=== PATIENT | female | born 1965 | race Caucasian/White ===

== ENCOUNTER 2018-12-28 09:48 | Emergency (ER) | payer OTHER ==
[2018-12-28 09:55] VITALS: BMI 48.9
--- NOTE | 2018-12-28 11:05 | PDOC ---
History of Present Illness - General Chief Complaint: Pain Stated Complaint: ABD PAIN/VOMITING History Source: Patient Exam Limitations: No Limitations - History of Present Illness Initial Comments: 12/28/18 11:05 53 yo F with h/o multiple abd surgeries, and previous incisional hernia ruq, s/ p mesh years ago, co abd pain near hernia site.started last pm. does have nausea. no vomiting. pain is constant radiating to back. was severe yesterday. does intermittently have recurrent bulging at hernia site, mesh has failed she was told. has not seen a surgeon in many years. last bm was today, normal. is passing gas. pain is intermittent, no f/c no urinar complaints. previous abd surgeries: cholecystectomy, resultant hernia repair with mesh c section, gastric bypass, abdominoplasty, recently had endometrial biopsy, hysteroscopy D&C no current surgeon following Past History - Past Medical History Allergies/Adverse Reactions: Allergies Allergy/AdvReac Type Severity Reaction Status Date / Time Iodinated Contrast Media Allergy Verified 12/28/18 09:55 [Iodinated Contrast Media - IV Dye] levofloxacin [From Levaquin] Allergy Verified 12/28/18 09:55 shellfish derived Allergy Verified 12/28/18 09:55 Home Medications: Ambulatory Orders Enalapril Maleate [Vasotec -] 10 mg PO DAILY 01/18/13 Hydrochlorothiazide [Hctz -] 25 mg PO DAILY 01/18/13 Naproxen [Naprosyn -] 500 mg PO BID PRN #15 tablet 01/18/13 Levothyroxine [Synthroid -] 50 mcg PO DAILY 12/28/18 Lisinopril [Prinivil -] 40 mg PO DAILY 12/28/18 Medroxyprogesterone Acetate 10 mg PO DAILY 12/28/18 Zolpidem Tartrate [Ambien] 5 mg PO DAILY 12/28/18 COPD: No HTN: Yes Other medical history: fibromyalgia - Surgical History Abdominal Surgery: Yes (HERNIA) Cholecystectomy: Yes Gastric Stapling: Yes (gastric bypass 20 yrs ago) - Suicide/Smoking/Psychosocial Hx Smoking Status: No Smoking History: Never smoked Number of Cigarettes Smoked Daily: 0 Review of Systems - Review of Systems Constitutional: No: Chills, Diaphoresis, Fever HEENTM: No: Eye Pain, Blurred Vision, Mouth Swelling Respiratory: No: Cough Cardiac (ROS): No: See HPI, Chest Pain ABD/GI: Yes: Nausea, Vomiting, Other (abd pain) : No: Burning, Dysuria, Discharge Musculoskeletal: Yes: Back Pain All Other Systems: Reviewed and Negative *Physical Exam - Vital Signs Last Vital Signs Temp Pulse Resp BP Pulse Ox 97.9 F 72 18 115/56 L 98 12/28/18 09:51 12/28/18 09:51 12/28/18 09:51 12/28/18 09:51 12/28/18 09:51 - Physical Exam Comments: 12/28/18 11:38 awake alert lungs clear bilat heart rrr no mrg abd soft obses, right upper quad scar, palp hernia, no palp bowel or herniation. but ttp, luq ttp. ext wwp no edema.nuero alert oriented moves all ext. ED Treatment Course - LABORATORY CBC & Chemistry Diagram: 12/28/18 11:30 12/28/18 11:30 Medical Decision Making - Medical Decision Making 12/28/18 11:39 53 yo F with mult abd surgeries priro sbo and hernia her ewith abd pain n/v differntial includes sbo, recurrent hernia, uti pyelo msk back strain, other infection. plan ct a/p pt allergic to iv contrast. plan oral contrast zofran ivf labs . 12/28/18 16:[address] with large hernia. does contain portion ascenting colon, no obstruction. contrast traverses throught bowel. overall pt feels improved. no longer having pain. tolerating PO in ed. labs unrmarkable. lactate normal. normal wbc. d/w dr arciniega business applications specialist surgeon, states if contrast going through bowel and asxs currently tolerating po ok for dc home. pt would like to be discharged home. given referral information for outpatient surgery. encouraged to go to bariatric center where prior surgeries performed. *DC/Admit/Observation/Transfer Diagnosis at time of Disposition: Hernia - Discharge Dispostion Decision to Admit order: No - Referrals Referrals: ON STAFF,NOT [Primary Care Provider] - - Patient Instructions Printed Discharge Instructions: Ventral Hernia Additional Instructions: you should follow up with your surgeon at [facility] in the bariatric surgery center. you may also follow up wtih a surgeon here at [facility]. see referral information for DR Rodriguez, or DR Arciniega. return for any problems or concerns. recurrent pain, vomiting or any concerns. If pain recurs, you should like flat and relax stomach, gently try to push hernia back in. if not resolved, pain or vomiting go to emergency room immediately. - Post Discharge Activity
[2018-12-28] MEDS ORDERED: ONDANSETRON 4 MG/2 ML VIAL IVPUSH ONE (11:07)
[2018-12-28] MEDS ORDERED: SODIUM CHLORIDE 0.9% 1000 ML INFUS.BAG IV ONE (11:07)
[2018-12-28] MEDS ORDERED: ONDANSETRON 4 MG/2 ML VIAL ONE (11:27)
[2018-12-28 12:19] LABS: BASO % 0.3 % (0-2.0); EOS % 0.9 % (0-4.5); HEMATOCRIT 31.5 % (32.4-45.2); HEMOGLOBIN 10.3 GM/dL (10.7-15.3); LYMPH % 15.8 % (8-40); MCH 26.4 pg (25.7-33.7); MCHC 32.7 g/dl (32.0-36.0); MEAN CELL VOLUME 80.7 fl (80-96); MEAN PLT VOLUME 7.5 fl (7.5-11.1); MONO % 5.1 % (3.8-10.2); NEUT % 77.9 % (42.8-82.8); PLATELET COUNT 383 K/MM3 (134-434); RBC 3.91 M/mm3 (3.60-5.2); RDW 18.5 % (11.6-15.6); WHITE BLOOD COUNT 9.2 K/mm3 (4.0-10.0)
[2018-12-28 12:20] LABS: BILIRUBIN,TOTAL 1.3 mg/dL (0.2-1); BLOOD UREA NITROGEN 12.5 mg/dL (7-18); CALCIUM 8.8 mg/dL (8.5-10.1); CREATININE 0.9 mg/dL (0.55-1.3); POTASSIUM 4.3 mmol/L (3.5-5.1)
[2018-12-28 12:53] LABS: INR 1.13 (0.83-1.09); PROTHROMBIN TIME (PATIENT) 13.4 SEC (9.7-13.0)
[2018-12-28 12:56] LABS: ACTIVATED PTT 31.1 SECONDS (25.2-36.5)
[2018-12-28 18:01] VITALS: BP 137/73
[2018-12-28 18:03] VITALS: PULSE 71; TEMP 97.5
== END 2018-12-28 18:04 | disposition home or self-care (01) ==
LOC: JER 09:48
PROC: 3E033GC Introduction of Other Therapeutic Substance into Peripheral Vein, Percutaneous Approach (ICD-10-PCS; principal; 2018-12-28)
DX: K46.9 Unspecified abdominal hernia without obstruction or gangrene (principal)
CPT/HCPCS: 36415; 74176-TC; 80053; 83605; 85025; 85610; 85730; 99283-25; J7030

== ENCOUNTER 2019-01-13 08:16 | Emergency (ER) | payer OTHER | END 2019-01-13 16:26 | disposition home or self-care (01) | LOC: JER 08:16 ==

== ENCOUNTER 2020-08-09 04:25 | Day surgery (SDC) | payer OTHER ==
[2020-08-05 12:42] VITALS: BMI 49.7
[2020-08-09] MEDS ORDERED: BUPIVACAINE HCL/PF 0.25% (2.5MG/ML) 10 ML VIAL ONE (07:28)
[2020-08-09] MEDS ORDERED: methylPREDNISolone ACET (DEPO) 80 MG/1 ML VIAL ONE (07:28)
[2020-08-09] MEDS ORDERED: LIDOCAINE HCL/PF 2% SDV 5ML VIAL ONE (08:20)
[2020-08-09] MEDS ORDERED: PROPOFOL 20 ML ONE (08:20)
[2020-08-09] MEDS ORDERED: LIDOCAINE HCL 1% PRESERVATIVE FREE - 30ML VIAL IJ ONE (08:31)
[2020-08-09] MEDS ORDERED: methylPREDNISolone ACET (DEPO) 80 MG/1 ML VIAL IJ ONE (08:32)
[2020-08-09] MEDS ORDERED: BUPIVACAINE HCL/PF 0.25% (2.5MG/ML) 10 ML VIAL IJ ONE (08:32)
[2020-08-09 10:42] VITALS: BP 125/69; PULSE 83; TEMP 97.9
== END 2020-08-09 10:35 | disposition home or self-care (01) ==
LOC: JASU-SURG 04:25
PROVIDERS: ATTEND Neurological Surgery
PROC: 3E0R33Z Introduction of Anti-inflammatory into Spinal Canal, Percutaneous Approach (ICD-10-PCS; 2020-08-09)
PROC: 3E0R3BZ Introduction of Anesthetic Agent into Spinal Canal, Percutaneous Approach (ICD-10-PCS; principal; 2020-08-09 08:00)
DX: M51.17 Intervertebral disc disorders with radiculopathy, lumbosacral region (principal)
CPT/HCPCS: 76000-TC-FY

== ENCOUNTER 2022-10-30 14:14 | Emergency (ER) | payer OTHER ==
[2022-10-30 14:21] VITALS: BP 142/70; PULSE 75; RESP 18; TEMP 97.8; BMI 51.2
[2022-10-30] MEDS ORDERED: ACETAMINOPHEN 500 MG TABLET (FP) PO ONE (16:14)
[2022-10-30] MEDS ORDERED: ACETAMINOPHEN 325 MG TABLET (FP) ONE (16:23)
[2022-10-30 17:11] LABS: PH,URINE 5.5 (5.0-8.0); URINE APPEARANCE CLEAR; URINE BILIRUBIN NEGATIVE (NEGATIVE); URINE COLOR YELLOW; URINE GLUCOSE (UA) NEGATIVE (NEGATIVE); URINE KETONE TRACE (NEGATIVE); URINE LEUK ESTERASE NEGATIVE (NEGATIVE); URINE NITRITE NEGATIVE (NEGATIVE); URINE PROTEIN NEGATIVE (NEGATIVE)
[2022-10-30 17:15] LABS: BASO % 0.4 % (0-2.0); HEMATOCRIT 41.6 % (32.4-45.2); HEMOGLOBIN 13.8 GM/dL (10.7-15.3); LYMPH % 22.9 % (8-40); MCH 29.9 pg (25.7-33.7); MCHC 33.3 g/dl (32.0-36.0); MEAN CELL VOLUME 89.8 fl (80-96); MEAN PLT VOLUME 7.6 fl (7.5-11.1); MONO % 7.6 % (3.8-10.2); NEUT % 67.1 % (42.8-82.8); PLATELET COUNT 308 10^3/uL (134-434); RBC 4.64 M/mm3 (3.60-5.2); RDW 16.4 % (11.6-15.6); WHITE BLOOD COUNT 8.2 K/mm3 (4.0-10.0)
[2022-10-30 17:21] LABS: POTASSIUM 3.9 mmol/L (3.5-5.1)
[2022-10-30 17:23] LABS: CALCIUM 9.2 mg/dL (8.5-10.1)
[2022-10-30 17:24] LABS: BLOOD UREA NITROGEN 16.4 mg/dL (7-18)
[2022-10-30 17:27] LABS: CREATININE 0.9 mg/dL (0.55-1.3)
[2022-10-30 17:29] LABS: BILIRUBIN,TOTAL 1.1 mg/dL (0.2-1); TOT PROT 7.3 g/dl (6.4-8.2)
== END 2022-10-30 18:25 | disposition home or self-care (01) ==
LOC: JER 14:14
DX: R05.9 Cough, unspecified (principal); M54.6 Pain in thoracic spine; R10.9 Unspecified abdominal pain; R07.89 Other chest pain; Z20.822 Contact with and (suspected) exposure to COVID-19
CPT/HCPCS: 0241U-QW; 36415; 71045-TC-FY; 80053; 81003; 85025; 87086; 99284-25

== ENCOUNTER 2023-01-06 12:02 | Observation (INO) | payer OTHER ==
[2023-01-06 12:22] VITALS: BMI 49.5
[2023-01-06 14:30] LABS: BASO % 0.5 % (0-2.0); HEMOGLOBIN 12.1 GM/dL (10.7-15.3); LYMPH % 24.4 % (8-40); MCH 30.7 pg (25.7-33.7); MCHC 32.6 g/dl (32.0-36.0); MEAN CELL VOLUME 94.1 fl (80-96); MONO % 6.8 % (3.8-10.2); NEUT % 66.3 % (42.8-82.8); PLATELET COUNT 268 10^3/uL (134-434); RBC 3.93 M/mm3 (3.60-5.2); WHITE BLOOD COUNT 6.2 K/mm3 (4.0-10.0)
[2023-01-06 14:43] LABS: POTASSIUM 4.6 mmol/L (3.5-5.1)
[2023-01-06 14:44] LABS: CALCIUM 8.4 mg/dL (8.5-10.1)
[2023-01-06 14:45] LABS: ALBUMIN 3.4 g/dl (3.4-5.0); MAGNESIUM 2.2 mg/dL (1.8-2.4)
[2023-01-06 14:48] LABS: CREATININE 0.8 mg/dL (0.55-1.3)
[2023-01-06 14:50] LABS: BILIRUBIN,TOTAL 0.5 mg/dL (0.2-1)
[2023-01-06 14:51] LABS: BLOOD UREA NITROGEN 9.2 mg/dL (7-18)
[2023-01-06] MEDS ORDERED: ZOLPIDEM TARTRATE 5 MG TABLET PO PRN (17:19)
[2023-01-06 19:26] VITALS: RESP 20
[2023-01-06] MEDS ORDERED: ASPIRIN 81 MG CHEWABLE TABLETS PO ONE (20:53)
[2023-01-07] MEDS ORDERED: ASPIRIN 81 MG CHEWABLE TABLETS PO ONE (00:50)
[2023-01-07] MEDS ORDERED: LEVOTHYROXINE NA 50 MCG TABLET (FP) PO SCH (07:00)
[2023-01-07 08:20] LABS: BASO % 0.5 % (0-2.0); HEMATOCRIT 33.8 % (32.4-45.2); HEMOGLOBIN 11.5 GM/dL (10.7-15.3); LYMPH % 30.2 % (8-40); MCH 31.5 pg (25.7-33.7); MCHC 34.1 g/dl (32.0-36.0); MEAN CELL VOLUME 92.4 fl (80-96); MEAN PLT VOLUME 7.9 fl (7.5-11.1); MONO % 8.3 % (3.8-10.2); PLATELET COUNT 215 10^3/uL (134-434); RBC 3.65 M/mm3 (3.60-5.2); RDW 14.7 % (11.6-15.6); WHITE BLOOD COUNT 4.1 K/mm3 (4.0-10.0)
[2023-01-07 08:50] LABS: POTASSIUM 4.2 mmol/L (3.5-5.1)
[2023-01-07 08:57] LABS: ALBUMIN 3.2 g/dl (3.4-5.0); CALCIUM 8.5 mg/dL (8.5-10.1)
[2023-01-07 08:58] LABS: BLOOD UREA NITROGEN 8.2 mg/dL (7-18)
[2023-01-07 08:59] LABS: BILIRUBIN,TOTAL 0.8 mg/dL (0.2-1); TOT PROT 5.6 g/dl (6.4-8.2)
[2023-01-07 09:00] LABS: CREATININE 0.7 mg/dL (0.55-1.3)
[2023-01-07] MEDS ORDERED: ASPIRIN 81 MG CHEWABLE TABLETS PO SCH (10:00)
[2023-01-07] MEDS ORDERED: LISINOPRIL 20 MG TABLET PO SCH (10:00)
[2023-01-07 15:46] VITALS: BP 117/67; PULSE 75; TEMP 98.2
== END 2023-01-07 17:55 | disposition home or self-care (01) ==
LOC: JER 12:02 → JERBED 15:14 → J4W 01-07 00:10
PROVIDERS: ADMIT Internal Medicine; ATTEND Internal Medicine
DX: R07.9 Chest pain, unspecified (principal); M45.9 Ankylosing spondylitis of unspecified sites in spine; I10 Essential (primary) hypertension; E03.9 Hypothyroidism, unspecified; I48.92 Unspecified atrial flutter; K44.9 Diaphragmatic hernia without obstruction or gangrene; Z91.013 Allergy to seafood; Z91.041 Radiographic dye allergy status; Z88.8 Allergy status to other drugs, medicaments and biological substances
CPT/HCPCS: 0241U-QW; 36415; 71045-TC-FY; 80053; 80061; 82550; 83735; 84439; 84443; 84484; 85025; 93005; 93010; 99285-25; G0378